=== PATIENT | female | born 1980 | race Caucasian/White ===

== ENCOUNTER → 2021-02-14 | Outpatient (CLI) | payer BC ==
--- NOTE | 2021-02-15 10:57 | REP ---
INDICATION: LUMP LEFT BREAST. COMPARISON: This is the patient's baseline mammogram. TECHNIQUE: 2D and 3D cc and MLO views of both breasts were obtained and supplemented by an exaggerated CC view of the left breast. Targeted ultrasound evaluation of the left breast was performed. FINDINGS: There is a radiopaque triangle marking the location of the palpable abnormality in the left breast. There is no mammographic correlate to the palpable abnormality in the left breast. The Volpara volumetric breast density pattern is B, there are scattered areas of fibroglandular density.. Left breast ultrasound: There are no cystic or solid masses in the left breast. IMPRESSION: BIRADS/ACR : Category 1: Negative. This patient's Tyrer-Cuzick lifetime breast cancer risk assessment score is 17.8%. This mammogram was interpreted with the aid of an FDA-approved computer-aided detection system. The patient states she had a clinical breast exam in January 2021. The patient letter being requested is M1. RECOMMENDATION: Repeat screening mammography recommended 1 year (for women over 40). <Electronically signed by Bk Jones > 02/15/21 [id number]
== END ==
LOC: M WHC 15:53
PROVIDERS: ATTEND Nurse Practitioner Family
DX: N64.4 Mastodynia (principal); N63.21 Unspecified lump in the left breast, upper outer quadrant
CPT/HCPCS: 76642; 77066; G0279